=== PATIENT | male | born 1995 | race Caucasian/White ===

== ENCOUNTER 2024-09-22 22:25 | Emergency (ER) | payer SELFPAY ==
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
[2024-09-22] MEDS: IBUPROFEN 800 MG TAB PO STA (23:18)
[2024-09-22] MEDS: LIDOCAINE 1% INJ 10MG/ML (20 ML MDV) SQ ONE (23:18)
[2024-09-23 00:42] VITALS: BP 129/81; PULSE 79; RESP 16; TEMP 98.5
== END 2024-09-23 00:47 | disposition home or self-care (01) ==
LOC: EC 22:25
DX: S01.511A Laceration without foreign body of lip, initial encounter (principal); F17.200 Nicotine dependence, unspecified, uncomplicated; Y04.0XXA Assault by unarmed brawl or fight, initial encounter
CPT/HCPCS: 99282; 12015; J2003